=== PATIENT | male | born 1955 | race Two or more races ===

== ENCOUNTER 2024-12-17 10:27 | Emergency (ER) | payer OTHER ==
[~2024-12-17] VITALS: Ht 193 cm; Wt 104.0 kg
[2024-12-17 10:29] VITALS: TEMP 97.6
--- NOTE | 2024-12-17 11:18 | ED.PDOC ---
SOB-HPI HPI Comments A 69 YEAR OLD MALE PRESENTS TO THE ED WITH COMPLAINT OF FLU-LIKE SYMPTOMS . PATIENT STATES HE HAS BEEN HAVING SWEATS ,COUGH, CONGESTION HEADACHE BODY ACHES AND AND FEELING LETHARGIC FOR "AWHILE NOW." PT ALREADY HAD COVID, AND SWAB TEST FOR INFLUNEZA A AND B, AND GROUP A STREP AND IT ALL CAME BACK NEGATIVE. PATIENT STATES HE WAS AT [facility] TODAY AND STATES HE HAD CHEST X-RAY WHICH HE STATES WAS NORMAL BUT STATES HE WAS TOLD TO COME TO ED FOR FURTHER EVALUATION. PATIENT IN THE ED IN NO CURRENT RESPIRATORY DISTRESS AND OTHERWISE STABLE VITALS PATIENT DENIES FEVER, CHILLS, SHORTNESS OF BREATH, CHEST PAIN, ABDOMINAL PAIN, NAUSEA, VOMITING, OR OTHER COMPLAINTS. NO OTHER SYMPTOMS OR MODIFYING FACTORS AT THIS TIME. PATIENT IS ALERT, ORIENTED X 4, AND HAS STEADY GAIT. Chief Complaint: Flu like Time Seen by MD: 11:12 Reviewed notes: Nurses Notes, Medications, Allergies Mode of Arrival: Ambulatory Brought in by: SELF Severity: Mild, Moderate Timing: Days, Came on: Gradually Duration: Since onset, Days Context: Spontaneous Onset PE Risk Factors: None History of: Anxiety, Recent URI Prehospital treatment: Treatment Modifying Factors: Inhaler Associated Signs and Symptoms: Cough, Nasal Congestion If cough with SOB: Productive Past Medical History PAST MEDICAL HISTORY: Denies Surgical History: Denies all surgeries Family History Family History: Reviewed,noncontributory to illness Social History Smoker: Non-Smoker Alcohol: Denies ETOH Use Drugs: Denies Drug Use Lives In: Home Constitutional: reports: fatigue, sweats, weakness; denies: chills, diaphoresis, fever, malaise, others EENTM: reports: throat pain; denies: blurred vision, double vision, ear bleeding, ear discharge, ear drainage, ear pain, ear ringing, eye pain, eye redness, hearing loss, mouth pain, mouth swelling, nasal discharge, nose bleeding, nose congestion, nose pain, photophobia, tearing, throat swelling, voice changes, others Respiratory: reports: cough; denies: hemoptysis, orthopnea, SOB at rest, shortness of breath, SOB with excertion, stridor, wheezing, others Cardiovascular: denies: chest pain, dizzy spells, diaphoresis, Dyspnea on exertion, edema, irregular heart beat, left arm pain, lightheadedness, palpitations, PND, syncope, others Gastrointestinal: denies: abdomen distended, abdominal pain, blood streaked bowels, constipated, diarrhea, dysphagia, difficulty swallowing, hematemesis, melena, nausea, poor appetite, poor fluid intake, rectal bleeding, rectal pain, vomiting, others Genitourinary: denies: burning, dysuria, flank pain, frequency, hematuria, incontinence, penile discharge, penile sore, pain, testicle pain, testicle swelling, urgency, others Neurological: denies: dizziness, fainting, headache, left sided numbness, left sided weakness, numbness, paresthesia, pre-existing deficit, right sided numbness, right sided weakness, seizure, speech problems, tingling, tremors, weakness, others Musculoskeletal: denies: back pain, gout, joint pain, joint swelling, muscle pain, muscle stiffness, neck pain, others Integumetry: denies: bruises, change in color, change in hair/nails, dryness, laceration, lesions, lumps, rash, wounds, others Allergic/Immunocompromised: denies: Difficulty Healing, Frequent Infections, Hives, Itching, others Hematologic/Lymphatic: denies: anemia, blood clots, easy bleeding, easy bruising, swollen glands, others Endocrine: denies: excessive hunger, excessive sweating, excessive thirst, excessive urination, flushing, intolerance to cold, intolerance to heat, unexplained weight gain, unexplained weight loss, others Psychiatric: denies: anxiety, bipolar disorder, depression, hopeless, panic disorder, schizophrenia, sleepless, suicidal, others All Other Systems: Reviewed and Negative Physical Exam General Appearance: No Apparent Distress, Normal HEENT: Normal ENT Inspection, PERRL/EOMI, Pharyngeal Erythema, TMs Normal Neck: Full Range of Motion, Non-Tender, Normal, Normal Inspection Respiratory: Chest Non-Tender, Expiration, No Accessory Muscle Use, No Respiratory Distress, Rhonchi Cardiovascular: No Edema, No JVD, No Murmur, No Gallop, Normal Peripheral Pulses, Regular Rate/Rhythm Breast Exam: Deferred Gastrointestinal: No Organomegaly, Non Tender, No Pulsatile Mass, Normal Bowel Sounds, Soft Genitalia: Deferred Pelvic: Deferred Rectal: Deferred Extremities: No calf tenderness, Normal capillary refill, Normal inspection, Normal range of motion, Non-tender, No pedal edema Musculoskeletal : Apperance: Normal Neurologic: Alert, him analyst II-XII nml as Tested, No Motor Deficits, Normal Affect, Normal Mood, No Sensory Deficits Cerebellar Function: Normal Reflexes: Normal Skin: Dry, Normal Color, Warm Peripheral Pulses: 2+ carotid (R), 2+ carotid (L) Lymphatic: No Adenopathy EKG EKG : Pulse Rate (adult): 83 Block: None Hypertrophy: None ST: Normal Was a procedure done? Was a procedure done?: No Differential Dx Differential Diagnosis: Asthma, Bronchitis, Pneumonia, Respiratory Distress, Pharyngitis, URI Comments COVID, INFLUENZA AND B, VIRAL SYNDROME, X-Ray, Labs, Meds, VS Vital Signs Date Time Temp Pulse Resp B/P (MAP) Pulse Ox O2 Delivery O2 Flow Rate FiO2 12/17/24 12:56 74 18 99 Room Air 12/17/24 12:56 74 18 119/78 (92) 99 12/17/24 10:41 83 12/17/24 10:29 97.6 53 18 129/59 97 97.6 Lab Test 12/17/24 11:07 Range/Units White Blood Count 8.2 4.4-10.8 10^3/uL Red Blood Count 4.18 L 4.5-5.90 10^6/uL Hemoglobin 13.2 L 13.5-17.5 g/dL Hematocrit 38.3 L 41.0-53.0 % Mean Corpuscular Volume 91.6 80.0-100.0 fL Mean Corpuscular Hemoglobin 31.6 28.0-32.0 pg Mean Corpuscular Hemoglobin Concent 34.4 32.0-36.0 g/dL Red Cell Distribution Width 13.5 11.8-14.3 % Platelet Count 253 140-450 10^3/uL Mean Platelet Volume 7.2 6.9-10.8 fL Neutrophils (%) (Auto) 81.0 H 37.0-80.0 % Lymphocytes (%) (Auto) 10.5 10.0-50.0 % Monocytes (%) (Auto) 7.8 0.0-12.0 % Eosinophils (%) (Auto) 0.3 0.0-7.0 % Basophils (%) (Auto) 0.4 0.0-2.0 % Neutrophils # (Auto) 6.6 1.6-8.6 10 ^3/uL Lymphocytes # (Auto) 0.9 0.4-5.4 10 ^3/uL Monocytes # (Auto) 0.6 0-1.3 10 ^3/uL Eosinophils # (Auto) 0 0-0.8 10 ^3/uL Basophils # (Auto) 0 0-0.2 10 ^3/uL Nucleated Red Blood Cells 0.1 % D-Dimer, Quantitative 0.36 0.0-0.49 mg/L FEU Sodium Level 139 136-145 mmol/L Potassium Level 4.6 3.5-5.1 mmol/L Chloride Level 103 98-107 mmol/L Carbon Dioxide Level 27 20-31 mmol/L Anion Gap 9 5-15 Blood Urea Nitrogen 18 9-23 mg/dL Creatinine 1.06 0.700-1.30 mg/dL Glomerular Filtration Rate Calc 76 >90 mL/min BUN/Creatinine Ratio 17.0 10.0-20.0 Serum Glucose 102 74-106 mg/dL Calcium Level 9.3 8.7-10.4 mg/dL Total Bilirubin 0.6 0.2-1.0 mg/dL Aspartate Amino Transferase (AST) 14 13-40 U/L Alanine Aminotransferase (ALT) 20 7-40 U/L Alkaline Phosphatase 55 46-116 U/L Troponin I High Sensitivity 4 </=54 ng/L B-Type Natriuretic Peptide 135.55 0-100 pg/mL Total Protein 7.6 5.7-8.2 g/dL Albumin 4.3 3.2-4.8 g/dL PATIENT: SANDEE MORRISONCCT: [id number]: [id number] : 1955 LOC: ER ROOM / BED: / AGE / SEX: 69 / M ADM STATUS: REG ER SERVICE 1057 ORDERING PHYSICIAN: BRIAN STEVENS PROCEDURE(s): CXR2 - CHEST TWO VIEWS ROUTINE REASON: COUGH ORDER NUMBER(s): [id number], ACCESSION NUMBER(s): [id number] CHEST RADIOGRAPH Indication: COUGH Technique: Frontal and lateral view of the chest was obtained Comparison: None FINDINGS: Lines and Tubes: None Lungs: Mild streaky atelectatic changes at the right lung base. Pleura: No effusion. No pneumothorax. Cardiomediastinal contours: Unremarkable Bones: Unremarkable IMPRESSION: No evidence of acute disease. ATED BY: NISH ESCAMILLA MD DICTATED DATE/TIME: 12/17/24 115 SIGNED BY: NISH ESCAMILLA MD SIGNED DATE/TIME: 12/17/24 115 CC: X-Ray, Labs, Meds, VS Comment COURSE: EXTERNAL MEDICAL RECORDS REVIEWED: [NONE] INDEPENDENT HISTORIANS: [NONE] SOCIAL DETERMINANTS OF HEALTH: [NONE] LABS ORDERED: CBC, CMP, BNP, D-DIMER, TROPONIN REVIEWED AND INTERPRETED RESULTS: NORMAL IMAGING ORDERED: CHEST X-RAY TREATMENTS ORDERED: NO PROCEDURES PERFORMED: NONE CRITICAL CARE TIME: NONE I HAVE DISCUSSED THE PATIENT WITH THE ATTENDING PHYSICIAN, DR. ARIZA, HE AGREES WITH THE PATIENT'S PLAN OF CARE AND DISPOSITION. BASED ON HISTORY OF PRESENT ILLNESS, AND PHYSICAL EXAM, PATIENT WILL BE DISCHARGED HOME. DISCUSSED PLAN FOR DISCHARGE HOME WITH RX [LEVAQUIN AND PHENERGAN DM]. MEDICATION WARNINGS GIVEN. SHARED DECISION MAKING: DISCUSSED WITH PATIENT THAT THEIR WORKUP WAS NORMAL. PATIENT INSTRUCTED TO FOLLOW UP WITH PRIMARY CARE PROVIDER IN 1-2 DAYS FOR RE-EVALUATION OF SYMPTOMS. PATIENT VERBALIZES UNDERSTANDING TO RETURN TO ED FOR NEW OR WORSENING SYMPTOMS OR IF FOLLOW UP WITH PCP CANNOT BE OBTAINED. PATIENT FEELS COMFORTABLE GOING HOME AT THIS TIME. ALL QUESTIONS ADDRESSED AT TIME OF DISCHARGE. [facility] Time of 1ST Reevaluation: 13:10 Reevaluation 1ST: Improved Patient Education/Counseling: Diagnosis, Treatment, Need For Follow Up Family Education/Counseling: Diagnosis, Treatment, No Family Present Medical Screening: No EMC Exist At This Time SEPSIS Sepsis Screen Date sepsis recognized/suspect: Dec 17, 2024 Time Sepsis recognized/suspect: 1032 Recent Procedure: No On Antibiotic Therapy: No Respiratory Rate >20: No Heart Rate >90: No Temp<36 C (96.8 F) or >38.3 C: No SBP <90 or MAP <65 mmHG: No New Acute Mental Status Change: No Is the patient on CPAP, BIPAP,: No Physician Orders Electrocardigram (12/17/24 10:44) Chest Two Views Routine (12/17/24 10:57) Vital Signs Date Time Temp Pulse Resp B/P (MAP) Pulse Ox O2 Delivery O2 Flow Rate FiO2 12/17/24 12:56 74 18 99 Room Air 12/17/24 12:56 74 18 119/78 (92) 99 12/17/24 10:41 83 12/17/24 10:29 97.6 53 18 129/59 97 97.6 Laboratory Tests Test 12/17/24 11:07 White Blood Count 8.2 10^3/uL (4.4-10.8) Departure 1 Departure Time of Disposition: 13:10 Impression: Primary Impression: Acute bronchitis Qualified Codes: J20.9 - Acute bronchitis, unspecified Disposition: HOME / SELF CARE / HOMELESS Condition: Stable Additional Instructions: INSTRUCTIONS: FOLLOW-UP WITH PCP IN 1 TO 2 DAYS. TAKE MEDICATIONS PRESCRIBED. RETURN TO ED FOR ANY NEW OR WORSENING SYMPTOMS. e-Prescriptions Promethazine-Dm (Promethazine Dm 6.25-15 mg/5Ml) 1 Petty Petty 5 ML PO TID, #180 ML Prov: BRIAN STEVENS 12/17/24 Levofloxacin Hemihydrate (LEVAQUIN 500 MG) 500 Mg Tab 1 TAB PO DAILY, #10 TAB Prov: BRIAN STEVENS 12/17/24 Discharged With: Self, Relative Critical Care Note Critical Care Time?: No Stability Stability form required: No Heart Score Heart Score: Heart Score Response (Comments) Value History N/A 0 EKG N/A 0 Age N/A 0 Risk Factors N/A 0 Troponin N/A 0 Total 0 I personally scribed for BRIAN STEVENS ([email or web address]) on 12/17/24 at 11:18. Electronically submitted by Pennie VILLANUEVA). BRIAN STEVENS Dec 17, 2024 11:18
[2024-12-17 11:26] LABS: Hematocrit 38.3 % (41.0-53.0); Hemoglobin 13.2 g/dL (13.5-17.5); Mean Corpuscular Hemoglobin 31.6 pg (28.0-32.0); Mean Corpuscular Volume 91.6 fL (80.0-100.0); Nucleated Red Blood Cells % 0.1 %
[2024-12-17 11:38] LABS: Alanine Aminotransferase 20 U/L (7-40); Albumin 4.3 g/dL (3.2-4.8); Alkaline Phosphatase 55 U/L (46-116); Anion Gap 9 (5-15); BUN/Creatinine Ratio 17.0 (10.0-20.0); Bilirubin, Total 0.6 mg/dL (0.2-1.0); Blood Urea Nitrogen 18 mg/dL (9-23); Calcium 9.3 mg/dL (8.7-10.4); Carbon Dioxide 27 mmol/L (20-31); Chloride 103 mmol/L (98-107); Potassium 4.6 mmol/L (3.5-5.1); Sodium 139 mmol/L (136-145); Total Protein 7.6 g/dL (5.7-8.2)
--- NOTE | 2024-12-17 11:53 | DVH ---
CHEST RADIOGRAPH Indication: COUGH Technique: Frontal and lateral view of the chest was obtained Comparison: None FINDINGS: Lines and Tubes: None Lungs: Mild streaky atelectatic changes at the right lung base. Pleura: No effusion. No pneumothorax. Cardiomediastinal contours: Unremarkable Bones: Unremarkable IMPRESSION: No evidence of acute disease.
[2024-12-17 12:02] LABS: Glucose 102 mg/dL (74-106)
[2024-12-17 12:56] VITALS: BP 119/78; RESP 18; O2SAT 99
[2024-12-17] MEDS ORDERED: LEVO500T91 PO (13:01)
[2024-12-17] MEDS ORDERED: PROM1SOL4 PO (13:01)
[2024-12-17 13:13] VITALS: PULSE 83
--- NOTE | 2024-12-22 09:43 | ECG ---
[facility] Test Date: 2024-12-17 Test Time: 10:37:51 Pat Name: THAO MORRISON Department: Room: Gender: M Pawn Broker: : 1955 Requested By: BRIAN STEVENS Order Number: [id number] Reading MD: Fam Ardon Measurements Intervals [place] Rate: 83 P: 48 UT: 241 QRS: 37 QRSD: 98 T: 37 QT: 373 QTc: 439 Interpretive Statements Sinus rhythm Ventricular trigeminy Prolonged UT interval Left atrial enlargement RSR' in V1 or V2, probably normal variant Electronically Signed On 12-23-2024 15:06:37 PDT by Fam Ardon Please click the below link to view image of tracing.
== END 2024-12-17 13:07 | disposition home or self-care (01) ==
LOC: ER 10:27
DX: J20.9 Acute bronchitis, unspecified (principal); Z79.899 Other long term (current) drug therapy
CPT/HCPCS: 36415; 71046; 80053; 83880; 84484; 85025; 85379; 93005

== ENCOUNTER 2025-02-21 15:25 | Emergency (ER) | payer OTHER ==
[~2025-02-21] VITALS: Ht 193 cm; Wt 99.5 kg
[~2025-02-21 15:25] MED LIST: LEVO500T91 PO; PROM1SOL4 PO
--- NOTE | 2025-02-21 15:44 | ED.PDOC ---
SOB-HPI HPI Comments HPI: Morrison 69 y.o male presents to the ED for a chief complaint of SOB associated with fatigue and unintentional weight x 3 months. At that time of symptoms presented, patient was diagnosed with PNA and finished the set antibiotic course. Patient states yesterday he went to get his colonoscopy but procedure was aborted due to shallow breathing and was sent to the [facility] for evaluation. During his hospital stay, he had blood work and all sorts of imaging done and was discharged home. Patient got a call today stating he had bacteria in his blood possible sepsis. P Initial Vitals BP: 134/83 HR:89 RR:16 O2:98% RA Temp: 98 F Past Medical History: HTN Past Surgical History: Social History: right index digit, left wrist, and left knee Medications: On Lasix but per pt, was told to d/c per ER doc at [facility] yesterday. Allergies: HPI: Poor Historian. REVIEW OF SYSTEMS: CONSTITUTIONAL: Denies acute: fever, diaphoresis, chills, HEAD: Denies acute: headache, photophobia Eyes: Denies acute: Double vision, vision loss, eye pain, eye discharge. EARS: Denies acute: tinnitus, hearing loss, ear discharge, ear pain, THROAT: Denies acute: sore throat, swelling, difficulty swallowing , pain with swallowing, change in voice. NECK: Denies acute: neck pain, neck swelling, stiff neck. HEART: Denies acute : chest pain, palpitations, LUNGS: Denies acute: wheezing, cough, hemoptysis ABDOMEN: Denies acute: abdominal pain, Nausea, Vomiting, diarrhea, melena , hematemesis, hematochezia SKIN: Denies acute: rash, redness, lesions, itchiness. EXTREMITIES: Denies acute: calf pain, numbness, tingling, weakness, denies pain in extremity. Denies acute: Low back pain. Neuro: Denies acute: focal neurological deficit, motor or sensory focal neurological deficit, tremors, seizure like activity, confusion, dizziness, change in mental status, loss of bowel or bladder function, cauda equina like symptoms. : Denies acute: dysuria, hematuria, flank pain, increase in urinary frequency. PSYCH: Denies acute: hallucination, suicidal ideation, homicidal ideation. PHYSICAL EXAM: General: ----mild---acute distress, awake and alert. Head: normocephalic, atraumatic. No raccoon's eyes, no crum sign. Neck: supple, trachea is midline, no swelling. Throat: Normal phonation. Eyes:, no erythema, no purulent discharge, no proptosis, no icterus. Heart: regular rate, regular rhythm, no significant murmur appreciated. Lungs: no apparent respiratory distress, Able to speak in full sentences. No wheezing, no rhonchi, no crackles. No stridors Clear to auscultation bilaterally. Abdomen: non specific mild tender to palpation, non distended, soft, no guarding, no rebound, + bowel sounds. Neuro: Awake, Alert, oriented to name, self, situation, follows commands GCS=15. Speech is normal. Skin: no petechia, no purpura, no cyanosis, non-pale, not jaundice. Lower extremities: --1/4 b/l - Pitting edema no deformity, no focal swelling, no calf TTP. Makes eye contact. moves all four extremities. Face: no apparent facial droop. Ambulating in the ED independently. ED COURSE: DISCLAIMER: This medical document was created using an electronic medical record system with voice recognition software and computerized dictation system. Although this document has been carefully reviewed, there might still be some phonetic and typographical errors. Occasional wrong-word or "sound-alike" substitutions may have occurred due to the inherent limitations of voice recognition software. These areas are purely typographical due to imperfections of the software programs and do not reflect any compromise in the patient's medical care. Please read the chart carefully and recognize, using context, where these substitutions have occurred. Chief Complaint: Shortness of Breath Time Seen by MD: 15:35 Reviewed notes: Allergies Information Source: Patient Mode of Arrival: Ambulatory EKG EKG : Pulse Rate (adult): 83 Cardiac Rhythm: NSR Was a procedure done? Was a procedure done?: No Differential Dx Differential Diagnosis: Bronchitis, CHF, Pneumonia, Respiratory Distress, URI, Other (Includes but not limited to thyroid disease, encephalopathy, electrolyte abnormality, sepsis, infection, intracranial pathology, drug adverse effects, arrhythmia, kidney insufficiency, ACS, CVA, malignancy, anemia) Comments DDx include ACS, unstable angina, anxiety, PE, pneumothroax, neoplasm, cardiac ischemia, COPD, asthma, CHF, pleural effusion, tobacco abuse, pneumonia, hypoxia, hypercapnia, anemia., infection/sepsis., pulmonary edema. Asthma, Cardiac tamponade, infection. X-Ray, Labs, Meds, VS Vital Signs Date Time Temp Pulse Resp B/P (MAP) Pulse Ox O2 Delivery O2 Flow Rate FiO2 02/21/25 19:56 97.9 58 18 133/85 (101) 99 97.9 02/21/25 18:28 16 95 Room Air* 0 21 02/21/25 18:24 16 95 Room Air 02/21/25 18:24 97.9 58 16 133/85 (101) 95 97.9 02/21/25 15:44 83 02/21/25 15:34 83 02/21/25 15:27 98.0 89 16 134/83 98 98.0 Lab Test 02/21/25 19:09 02/21/25 17:11 02/21/25 16:27 Range/Units Troponin I High Sensitivity 9 8 9 </=54 ng/L White Blood Count 8.3 4.4-10.8 10^3/uL Red Blood Count 3.94 L 4.5-5.90 10^6/uL Hemoglobin 11.9 L 13.5-17.5 g/dL Hematocrit 34.9 L 41.0-53.0 % Mean Corpuscular Volume 88.5 80.0-100.0 fL Mean Corpuscular Hemoglobin 30.3 28.0-32.0 pg Mean Corpuscular Hemoglobin Concent 34.2 32.0-36.0 g/dL Red Cell Distribution Width 14.3 11.8-14.3 % Platelet Count 304 140-450 10^3/uL Mean Platelet Volume 6.7 L 6.9-10.8 fL Neutrophils (%) (Auto) 74.3 37.0-80.0 % Lymphocytes (%) (Auto) 15.3 10.0-50.0 % Monocytes (%) (Auto) 9.4 0.0-12.0 % Eosinophils (%) (Auto) 0.4 0.0-7.0 % Basophils (%) (Auto) 0.6 0.0-2.0 % Neutrophils # (Auto) 6.2 1.6-8.6 10 ^3/uL Lymphocytes # (Auto) 1.3 0.4-5.4 10 ^3/uL Monocytes # (Auto) 0.8 0-1.3 10 ^3/uL Eosinophils # (Auto) 0 0-0.8 10 ^3/uL Basophils # (Auto) 0.1 0-0.2 10 ^3/uL Nucleated Red Blood Cells 0.1 % Sodium Level 137 136-145 mmol/L Potassium Level 4.2 3.5-5.1 mmol/L Chloride Level 101 98-107 mmol/L Carbon Dioxide Level 28 20-31 mmol/L Anion Gap 8 5-15 Blood Urea Nitrogen 24 H 9-23 mg/dL Creatinine 1.12 0.700-1.30 mg/dL Glomerular Filtration Rate Calc 72 >90 mL/min BUN/Creatinine Ratio 21.4 H 10.0-20.0 Serum Glucose 100 74-106 mg/dL Lactic Acid Level 0.9 0.4-2.0 mmol/L Calcium Level 9.4 8.7-10.4 mg/dL Magnesium Level 2.2 1.6-2.6 mg/dL Total Bilirubin 0.5 0.2-1.0 mg/dL Aspartate Amino Transferase (AST) 16 13-40 U/L Alanine Aminotransferase (ALT) 24 7-40 U/L Alkaline Phosphatase 53 46-116 U/L B-Type Natriuretic Peptide 128.72 0-100 pg/mL Total Protein 7.9 5.7-8.2 g/dL Albumin 4.2 3.2-4.8 g/dL Microbiology Date/Time Source Procedure Growth Status 02/21/25 16:27 Blood Blood Culture - Final Complete 02/21/25 16:26 Blood Blood Culture - Final Complete [place] [address] Ph: [phone] DIAGNOSTIC IMAGING Diagnostic Imaging Report : [id number] Signed PATIENT: THAO MORRISON ACCT: [id number] UNIT: [id number] : 1955 LOC: ER ROOM / BED: / AGE / SEX: 69 / M ADM STATUS: REG ER SERVICE 1543 ORDERING PHYSICIAN: STEPHIE KRAUS DO PROCEDURE(s): CXRP - CHEST PORTABLE REASON: sob weak ORDER NUMBER(s): [id number], ACCESSION NUMBER(s): [id number] CHEST RADIOGRAPH INDICATION: sob weak TECHNIQUE: Single frontal view of the chest was obtained COMPARISON: 12/17/2024 FINDINGS: Lines and Tubes: None Lungs: Linear atelectasis or scarring is noted in the right base not significantly changed from 12/17/2024. Pleura: No effusion. No pneumothorax. Cardiomediastinal contours: Unremarkable Bones: No acute osseous abnormality. IMPRESSION: 1. No significant change from 12/17/2024 ATED BY: GUZMAN MART Jr., DO DICTATED DATE/TIME: 02/21/251641 SIGNED BY: GUZMAN MART Jr., SIGNED DATE/TIME: 02/21/251641 CC: Time of 1ST Reevaluation: 15:43 Reevaluation 1ST: Unchanged Time of 2ND Reevaluation: 17:49 (The case was discussed with the [facility] admitting team (HPI, physical exam, labs and diagnostic tests that were availab le at the time of disposition, ED course, treatment plan) on the phone. They agreed to transfer the patient to their service by [facility] for further evaluation and treatment. Dr. israel--. Authorization number is--[id number] [facility] physician said that the patient grew Gram-positive cocci in pairs and chains. Past medical history includes HTN, CHF, chronic pain, on lasix, ) Patient Education/Counseling: Diagnosis, Treatment Family Education/Counseling: No Family Present Comments MDM: patient presented with the above HPI.-generalized weakness---bacteremia--workup was initiated. patient was found with the above mentioned diagnosis. the following medications were ordered: please refer to order lists of meds and tests obtained by myself Dr. Kraus. Patient ED course and VS have been stabilized. Patient has been reassessed in the ED and remained in a stable condition. Pertinent incidental findings were discussed with the patient and/or family. Patient/family voices understanding and is agreeable with plan. Patient has been observed in the ED adequate length of time to insure improvement/stability. Escalation of care considered: Consideration of escalation to observation or admission Antibiotics initiated. Discussion with the [facility] physician on the phone. Patient was transferred to [facility] per insurance requirement to the medicine team for further evaluation and treatment of their presentation. All the reports of any imaging studies that were ordered by myself were reviewed by myself. Departure 1 Departure Time of Disposition: 17:48 Impression: Primary Impression: Bacteremia Disposition: 02 SHORT TERM HOSPITAL Admit to: Tele Condition: Guarded Discharged With: Self Critical Care Note Critical Care Time?: Yes (45 min-critical care time only) Heart Score Heart Score: Heart Score Response (Comments) Value History N/A 0 EKG N/A 0 Age N/A 0 Risk Factors N/A 0 Troponin N/A 0 Total 0 I personally scribed for STEPHIE KRAUS DO ([email or web address]) on 02/21/25 at 15:44. Electronically submitted by Dulce Moulton ([email or web address]). I personally scribed for STEPHIE KRAUS DO ([email or web address]) on 02/21/25 at 16:16. Electronically submitted by Dulce Moulton ([email or web address]). I personally scribed for STEPHIE KRAUS DO ([email or web address]) on 02/21/25 at 19:00. Electronically submitted by Dulce Moulton ([email or web address]). STEPHIE KRAUS DO Feb 21, 2025 15:44
[2025-02-21 16:41] LABS: Hematocrit 34.9 % (41.0-53.0); Hemoglobin 11.9 g/dL (13.5-17.5); Mean Corpuscular Hemoglobin 30.3 pg (28.0-32.0); Mean Corpuscular Volume 88.5 fL (80.0-100.0); Nucleated Red Blood Cells % 0.1 %
--- NOTE | 2025-02-21 16:45 | DVH ---
CHEST RADIOGRAPH INDICATION: sob weak TECHNIQUE: Single frontal view of the chest was obtained COMPARISON: 12/17/2024 FINDINGS: Lines and Tubes: None Lungs: Linear atelectasis or scarring is noted in the right base not significantly changed from 12/17/2024. Pleura: No effusion. No pneumothorax. Cardiomediastinal contours: Unremarkable Bones: No acute osseous abnormality. IMPRESSION: 1. No significant change from 12/17/2024
[2025-02-21 16:58] LABS: Alanine Aminotransferase 24 U/L (7-40); Albumin 4.2 g/dL (3.2-4.8); Alkaline Phosphatase 53 U/L (46-116); Anion Gap 8 (5-15); BUN/Creatinine Ratio 21.4 (10.0-20.0); Bilirubin, Total 0.5 mg/dL (0.2-1.0); Blood Urea Nitrogen 24 mg/dL (9-23); Calcium 9.4 mg/dL (8.7-10.4); Carbon Dioxide 28 mmol/L (20-31); Chloride 101 mmol/L (98-107); Glucose 100 mg/dL (74-106); Magnesium 2.2 mg/dL (1.6-2.6); Potassium 4.2 mmol/L (3.5-5.1); Sodium 137 mmol/L (136-145); Total Protein 7.9 g/dL (5.7-8.2)
[2025-02-21] MEDS: PIPERACILLIN-TAZOB 3.375GM 100 ML IV ONE (18:27)
[2025-02-21 19:56] VITALS: BP 133/85; PULSE 58; RESP 18; TEMP 97.9; O2SAT 99
--- NOTE | 2025-02-22 21:03 | ECG ---
[facility] Test Date: 2025-02-21 Test Time: 15:34:58 Pat Name: THAO MORRISON Department: ER Room: Gender: M Home Stager: tonya : 1955 Requested By: EMERGENCY EMERGENCY Order Number: [id number] Reading MD: Fam Ardon Measurements Intervals [place] Rate: 83 P: 65 WV: 233 QRS: 52 QRSD: 100 T: 59 QT: 370 QTc: 435 Interpretive Statements Sinus rhythm Atrial premature complexes Prolonged [place] interval Electronically Signed On 02-26-2025 8:33:39 PST by Fam Ardon Please click the below link to view image of tracing.
== END 2025-02-21 22:23 | disposition short-term general hospital (02) ==
LOC: ER 15:25
DX: R78.81 Bacteremia (principal); I10 Essential (primary) hypertension
CPT/HCPCS: 36415; 71045; 80053; 83605; 83735; 83880; 84484; 85025; 87040; 93005; 96365; 99285; J2543